=== PATIENT | female | born 1955 | race Caucasian/White ===

== ENCOUNTER → 2019-07-17 12:41 | Outpatient (CLI) | payer OTHER, SELFPAY ==
[2019-07-17 14:31] LABS: Cholesterol 201 mg/dL (140-199); Glucose 91 mg/dL (80-110); HDL Cholesterol 69 mg/dL (40-60); LDL Cholesterol Calculated 116 mg/dL (<100); Triglycerides 79 mg/dL (35-150)
== END ==
PROVIDERS: PCP Physician Assistant; Visit Provider Physician Assistant
DX: Z13.1 Encounter for screening for diabetes mellitus (principal); Z13.220 Encounter for screening for lipoid disorders; Z13.6 Encounter for screening for cardiovascular disorders
CPT/HCPCS: 36415; 80061; 82947

== ENCOUNTER → 2021-01-05 16:14 | Outpatient (CLI) | payer OTHER, SELFPAY ==
[2021-01-05 16:56] LABS: Add Manual Diff / Slide Review NO; Basophils Absolute Auto 100 /uL (0-100); Basophils Percent Auto 1.2 % (0-2); Eosinophils Absolute Auto 100 /uL (0-450); Eosinophils Percent Auto 0.9 % (2-4); Hematocrit 21.2 % (36-46); Lymphocytes Absolute Auto 1100 /uL (1100-4500); Lymphocytes Percent Auto 19.2 % (25-40); Mean Corpuscular HGB Conc 30.4 % (30-36); Mean Corpuscular Hemoglobin 19.6 PG (26-34); Mean Corpuscular Volume 64.6 fL (80-100); Monocytes Absolute Auto 500 /uL (0-900); Monocytes Percent Auto 8.5 % (3-14); Neutrophils Absolute Auto 4100 /uL (1500-7000); Neutrophils Percent Auto 70.2 % (50-75); Platelet Count 344 X10^3/uL (150-400); Red Blood Cell Count 3.29 X10^6/uL (4.0-5.2); Red Cell Distribution Width 17.6 % (11.6-14.8); White Blood Cell Count 5.8 X10^3/uL (4.5-11.0)
[2021-01-05 17:01] LABS: Hemoglobin 6.4 g/dL (12.0-16.0)
[2021-01-05 17:06] LABS: Alanine Aminotransferase 23 IU/L (<35); Albumin 4.1 g/dL (3.5-5.0); Albumin Globulin Ratio 1.4 (1.0-2.8); Alkaline Phosphatase 72 U/L (38-126); Aspartate Aminotransferase 26 IU/L (14-36); BUN Creatinine Ratio 22.5 (6-22); Bilirubin Total 0.3 mg/dL (0.2-1.3); Blood Urea Nitrogen 20 mg/dL (7-17); Calcium 8.9 mg/dL (8.4-10.2); Carbon Dioxide 30 mmol/L (22-32); Chloride 103 mmol/L (98-107); Estimated Glomerular Filt Rate > 60.0 mL/min (>60); Glucose 102 mg/dL (80-110); HEMOLYSIS < 15 (0-50); Potassium 4.3 mmol/L (3.4-5.1); Sodium 136 mmol/L (137-145); Total Protein 7.1 g/dL (6.3-8.2); Uric Acid 4.6 mg/dL (2.5-6.2)
[2021-01-05 17:13] LABS: Hypochromasia 2+; Microcytosis 3+; Polychromasia 2+; RBC Morphology ABNORMAL
== END ==
PROVIDERS: PCP Family Medicine; Referring Provider Registered Nurse; Visit Provider Registered Nurse
DX: M10.9 Gout, unspecified (principal); K21.9 Gastro-esophageal reflux disease without esophagitis; R42 Dizziness and giddiness
CPT/HCPCS: 36415; 80053; 84550; 85025

== ENCOUNTER 2021-01-05 17:40 | Inpatient (IN) | payer OTHER, SELFPAY ==
[2021-01-05] VITALS (15 sets, daily range): BP systolic 127–151; BP diastolic 63–88; PULSE 78–92; RESP 13–148; TEMP 36.2–36.9; O2SAT 95–100; BMI 26.6
[2021-01-05] MEDS: PANTOPRAZOLE 40 MG VIAL 80 MG IV (18:07)
[2021-01-05 18:11] LABS: Add Manual Diff / Slide Review NO; Basophils Absolute Auto 100 /uL (0-100); Basophils Percent Auto 1.1 % (0-2); Eosinophils Absolute Auto 100 /uL (0-450); Eosinophils Percent Auto 0.7 % (2-4); Hematocrit 21.6 % (36-46); Lymphocytes Absolute Auto 2000 /uL (1100-4500); Lymphocytes Percent Auto 25.2 % (25-40); Mean Corpuscular HGB Conc 30.2 % (30-36); Mean Corpuscular Hemoglobin 19.6 PG (26-34); Monocytes Absolute Auto 600 /uL (0-900); Monocytes Percent Auto 8.1 % (3-14); Neutrophils Absolute Auto 5100 /uL (1500-7000); Neutrophils Percent Auto 64.9 % (50-75); Platelet Count 355 X10^3/uL (150-400); Red Blood Cell Count 3.32 X10^6/uL (4.0-5.2); Red Cell Distribution Width 17.4 % (11.6-14.8); White Blood Cell Count 7.8 X10^3/uL (4.5-11.0)
[2021-01-05 18:13] LABS: Hemoglobin 6.5 g/dL (12.0-16.0)
[2021-01-05 18:17] LABS: Prothrombin Time 11.9 SECONDS (10.1-12.7)
[2021-01-05 18:20] LABS: PTT Partial Thromboplastin Tim 27 SECONDS (26.4-36.2)
[2021-01-05 18:22] LABS: Alanine Aminotransferase 25 IU/L (<35); Albumin 4.3 g/dL (3.5-5.0); Albumin Globulin Ratio 1.4 (1.0-2.8); Alkaline Phosphatase 77 U/L (38-126); Aspartate Aminotransferase 27 IU/L (14-36); BUN Creatinine Ratio 22.7 (6-22); Bilirubin Total 0.3 mg/dL (0.2-1.3); Blood Urea Nitrogen 20 mg/dL (7-17); Carbon Dioxide 27 mmol/L (22-32); Chloride 102 mmol/L (98-107); Estimated Glomerular Filt Rate > 60.0 mL/min (>60); Glucose 104 mg/dL (80-110); HEMOLYSIS < 15 (0-50); Sodium 135 mmol/L (137-145); Total Protein 7.3 g/dL (6.3-8.2)
--- NOTE | 2021-01-05 18:26 | PC.NURSE ---
reports one few days long episode of dark stools. since she reports she has had irregular stools, sometimes like little hard popcorns sometimes oily and greasy and sometimes liquid diarrhea.
[2021-01-05 18:37] LABS: COVID19 -Nasal RAPID Negative (Negative)
--- NOTE | 2021-01-05 18:50 | ED.RECABL ---
HPI - Recheck/Abnormal Lab/Rx General Chief Complaint: Recheck/Abnormal Lab/Rx Stated Complaint: Hemoglobin Critically Low, Sent From Time Seen by Provider: 01/05/21 18:01 Source: patient Mode of arrival: Ambulatory Limitations: no limitations History of Present Illness HPI narrative: Patient is a 65-year-old female who was sent to the emergency department after receiving a call from her primary doctor's office stating that her hemoglobin was ?critically low ?she states she went to her primary doctor's office this morning as a scheduled appointment for several days/weeks of feeling very fatigued. She also states that she does get somewhat short of breath with walking and feels that this has been going on along with the fatigue. She denies any other associated symptoms. This is why she came to see her primary doctor today. Labs were drawn she received a call telling her to come to the emergency department because of her low hemoglobin. She denies alcohol. She does have a history of which she states is gout and has been taking ?occasional ?anti-inflammatories for this. She states that several months ago she had which she thought was dark colored stools but that seems to have resolved. She has never had a colonoscopy in the past. She is not any fevers. No urinary symptoms. No abdominal pain. No nausea or vomiting. She is not on anticoagulation. She does have a history of reflux disease and takes medication for this. Related Data Home Medications Medication Instructions Recorded Confirmed naproxen sodium [Aleve] 220 mg PO HSP #0 03/22/11 01/05/21 CO-Q-10 See Rx Instructions .ROUTE .COMPLEX 08/08/18 01/05/21 Vitamin B Complex See Rx Instructions .ROUTE .COMPLEX 08/08/18 01/05/21 Vitamin C See Rx Instructions .ROUTE .COMPLEX 08/08/18 01/05/21 Vitamin D3 See Rx Instructions .ROUTE .COMPLEX 08/08/18 01/05/21 Previous Rx's Medication Instructions Recorded zolmitriptan 5 mg tablet 5 mg PO Q2-4H PRN #30 tab 09/23/20 famotidine 20 mg tablet 20 mg PO BID #180 tab 11/03/20 zolpidem 5 mg tablet 2.5 - 5 mg PO HS #30 tab 11/03/20 omeprazole 20 mg capsule,delayed 20 mg PO DAILY #30 cap 01/05/21 release Allergies Allergy/AdvReac Type Severity Reaction Status Date / Time pentazocine [PENTAZOCINE] AdvReac Intermediate RASH Verified 01/05/21 14:56 Review of Systems Constitutional Constitutional: Reports fatigue, Denies headache(s), Reports lethargy and Reports malaise Eyes Eyes: Denies change in vision ENT Ears, Nose, Mouth, and Throat: Denies headache(s), Denies sore throat and Denies throat swelling Cardiovascular Cardiovascular: Denies chest pain and Reports dyspnea on exertion Respiratory Respiratory: Denies cough and Reports dyspnea on exertion Gastrointestinal Gastrointestinal: Denies abdominal pain, Denies change in bowel habits, Denies nausea and Denies vomiting Genitourinary Genitourinary: Denies dysuria Genitourinary: Denies dysuria Musculoskeletal Musculoskeletal: Denies arthralgias and Denies myalgias Integumentary/Breasts Skin/Breast: Denies rash Neurologic Neurologic: Denies behavioral changes and Denies headache(s) Psychiatric Psychiatric: Denies behavioral changes Endocrine Endocrine: Reports fatigue and Denies flushing Hematologic/Lymphatic Hematologic/Lymphatic: Denies easy bleeding and Denies easy bruising On Anticoagulants: No Allergic/Immunologic Allergic/Immunologic: Denies urticaria and Denies throat swelling Patient History Medical History Postmenopausal HRT (hormone replacement therapy) Surgical History Status post delivery Family History Mother Blood disorder Suicide Father Heart attack Social History household members: spouse Smoking Status: Never smoker second hand exposure: No alcohol intake: former substance use type: does not use Smoking Status: Never smoker Exam Initial Vital Signs Initial Vital Signs: Vital Signs Temperature 97.2 F L 01/05/21 17:48 Pulse Rate 92 H 01/05/21 17:48 Respiratory Rate 20 01/05/21 17:48 Blood Pressure 151/72 H 01/05/21 17:48 Pulse Oximetry 96 01/05/21 17:48 Const General: cooperative, comfortable, well developed and well groomed Limitations: mental status not altered [facility] Head: normal to inspection and normocephalic Eyes General: appearance normal, both eyes and all related structures Chest Chest: No tenderness Resp Effort & Inspection: normal respiratory effort Auscultation: clear to auscultation bilaterally Cardio Rate: regular rate Rhythm: regular rhythm GI Inspection: non-distended Palpation: soft and No firm Rectal Exam: heme negative stool (However no stool was obtained on rectal exam) Skin Lesions: no lesions Rashes: no rashes Neuro General: patient alert, patient awake and patient oriented x3 Cognition: normal cognition Speech: speech normal Extrem General: normal to inspection and capillary refill normal Psych Appearance: grossly normal and well kempt Scores GCS Shyam coma scale eye opening: Spontaneous Shyam coma scale verbal response: Orientated Mcgrann coma scale motor response: Obey commands Mcgrann coma scale total score: 15 Course Orders Ordered: ED Orders 01/05/21 17:47 EKG-12 Lead Stat 01/05/21 17:57 Complete Blood Count AUTO DIFF Stat Comprehensive Metabolic Panel Stat Packed Cells Stat Partial Thromboplastin Time Stat Prothrombin Time INR Stat Type and Screen Stat 01/05/21 18:18 COVID19 Stat 01/05/21 19:44 Consult to General Surgery Stat Acetaminophen (Acetaminophen 325 Mg Tablet) 650 mg PO Q6HR PRN PRN Reason: Fever/Mild Pain (1-3) Pantoprazole Sodium 80 mg/ (Sodium Chloride) 100 mls @ 10 mls/hr IV CONT XIN Last Admin: 01/05/21 22:30 Dose: 8 mg/hr, 10 mls/hr Documented by: DEVAUGHN Naloxone HCl (Naloxone 0.4 Mg/Ml Vial) 0.2 mg IV Q2MIN PRN PRN Reason: Opiate Reversal Non-Formulary Medication (Zolmitriptan) 5 mg PO Q2HR PRN PRN Reason: Migraine Headache Ondansetron HCl (Ondansetron 4 Mg/2 Ml Inj) 4 mg IV Q8HR PRN PRN Reason: Nausea And Vomiting Discontinued Medications Pantoprazole Sodium (Pantoprazole 40 Mg Vial) 80 mg IV NOW ONE Stop: 01/05/21 17:47 Last Admin: 01/05/21 18:07 Dose: 80 mg Documented by: ULYSSES Pantoprazole Sodium (Pantoprazole 40 Mg Vial) 80 mg IV NOW ONE Stop: 01/05/21 19:45 Last Admin: 01/05/21 21:42 Dose: Not Given Documented by: MIKEAZQUE Vital Signs Vital signs: Vital Signs - 8 hr 01/05/21 17:48 01/05/21 18:20 01/05/21 18:30 Temperature 97.2 F L Pulse Rate 92 H 84 81 Respiratory Rate 20 22 13 Blood Pressure 151/72 H 127/74 Pulse Oximetry 96 100 100 01/05/21 19:00 01/05/21 19:30 01/05/21 19:31 Temperature 98.1 F Pulse Rate 83 81 78 Respiratory Rate 26 H 22 148 H Blood Pressure 133/75 148/75 H 148/75 H Pulse Oximetry 100 99 01/05/21 19:45 01/05/21 19:46 01/05/21 20:00 Temperature 98.5 F Pulse Rate 81 82 80 Respiratory Rate 20 20 20 Blood Pressure 145/68 H 145/68 H 142/69 H Pulse Oximetry 97 100 MDM - Recheck/Abnormal Lab/Rx Lab Data Attestation: I reviewed the patient's lab results. Result diagrams: 01/05/21 23:20 01/05/21 17:57 Labs: Lab Results 01/05/21 01/05/21 01/05/21 Range/Units 17:57 17:57 17:57 WBC 7.8 (4.5-11.0) X10^3/uL RBC 3.32 L (4.0-5.2) X10^6/uL Hgb 6.5 L* (12.0-16.0) g/dL Hct 21.6 L (36-46) % MCV 65.0 L (80-100) fL MCH 19.6 L (26-34) PG MCHC 30.2 (30-36) % RDW 17.4 H (11.6-14.8) % Plt Count 355 (150-400) X10^3/uL Neut % (Auto) 64.9 (50-75) % Lymph % (Auto) 25.2 (25-40) % [place] % (Auto) 8.1 (3-14) % Eos % (Auto) 0.7 L (2-4) % Baso % (Auto) 1.1 (0-2) % Neut # (Auto) 5100 (4762-6763) /uL Lymph # (Auto) 2000 (1618-8705) /uL [place] # (Auto) 600 (0-900) /uL Eos # (Auto) 100 (0-450) /uL Baso # (Auto) 100 (0-100) /uL PT 11.9 (10.1-12.7) SECONDS INR 1.0 (0.9-1.3) APTT 27 (26.4-36.2) SECONDS Sodium 135 L (137-145) mmol/L Potassium 4.0 (3.4-5.1) mmol/L Chloride 102 (98-107) mmol/L Carbon Dioxide 27 (22-32) mmol/L BUN 20 H (7-17) mg/dL Creatinine 0.88 (0.52-1.04) mg/dL Estimated GFR > 60.0 (>60) mL/min BUN/Creatinine Ratio 22.7 H (6-22) Glucose 104 (80-110) mg/dL Calcium 9.0 (8.4-10.2) mg/dL Total Bilirubin 0.3 (0.2-1.3) mg/dL AST 27 (14-36) IU/L ALT 25 (<35) IU/L Alkaline Phosphatase 77 (38-126) U/L Total Protein 7.3 (6.3-8.2) g/dL Albumin 4.3 (3.5-5.0) g/dL Globulin 3.0 (1.7-4.1) g/dL Albumin/Globulin Ratio 1.4 (1.0-2.8) SARS-CoV-2 (PCR) (Negative) Blood Type Antibody Screen Crossmatch 01/05/21 01/05/21 Range/Units 17:57 18:18 WBC (4.5-11.0) X10^3/uL RBC (4.0-5.2) X10^6/uL Hgb (12.0-16.0) g/dL Hct (36-46) % MCV (80-100) fL MCH (26-34) PG MCHC (30-36) % RDW (11.6-14.8) % Plt Count (150-400) X10^3/uL Neut % (Auto) (50-75) % Lymph % (Auto) (25-40) % [place] % (Auto) (3-14) % Eos % (Auto) (2-4) % Baso % (Auto) (0-2) % Neut # (Auto) (0201-2741) /uL Lymph # (Auto) (4185-0193) /uL [place] # (Auto) (0-900) /uL Eos # (Auto) (0-450) /uL Baso # (Auto) (0-100) /uL PT (10.1-12.7) SECONDS INR (0.9-1.3) APTT (26.4-36.2) SECONDS Sodium (137-145) mmol/L Potassium (3.4-5.1) mmol/L Chloride (98-107) mmol/L Carbon Dioxide (22-32) mmol/L BUN (7-17) mg/dL Creatinine (0.52-1.04) mg/dL Estimated GFR (>60) mL/min BUN/Creatinine Ratio (6-22) Glucose (80-110) mg/dL Calcium (8.4-10.2) mg/dL Total Bilirubin (0.2-1.3) mg/dL AST (14-36) IU/L ALT (<35) IU/L Alkaline Phosphatase (38-126) U/L Total Protein (6.3-8.2) g/dL Albumin (3.5-5.0) g/dL Globulin (1.7-4.1) g/dL Albumin/Globulin Ratio (1.0-2.8) SARS-CoV-2 (PCR) Negative (Negative) Blood Type B Positive Antibody Screen Negative Crossmatch See Detail ECG Data Attestation: I personally reviewed and interpreted this ECG as follows: Prior ECG tracings: not available for review Interpretation: Sinus rhythm Ventricular rate 86 Normal axis Normal QRS Normal QTC No ST T wave changes MDM Narrative Medical decision making narrative: Patient was anemic however was not hypotensive, not tachycardic. This makes me think that this is not an acute blood loss. Most likely source is GI given her history of reflux disease and also the black colored stool that she had several months ago. Given her fatigue over the past couple days in her low H&H I do feel that transfusing blood would help her symptoms. I did discuss this with her. We did discuss the risks and benefits of a blood transfusion and she expressed understanding and agreement with this. She did give her consent to a blood transfusion. We also discussed the potential etiology of her bleeding. Informed her that it is most likely a GI source. She was Hemoccult negative however I had very little if any blood available for testing on the rectal exam. I did discuss the case with Dr. Santiago with General surgery who recommended patient be admitted to the medicine service and she would come and see the patient tomorrow. I then discussed the case with SIMÓN Hickman the night Hospital provider will admit for further evaluation treatment. Discussed the admission with the patient. She expressed understanding and agreement. Discharge Plan Departure Patient Disposition: Admitted as Observation Clinical Impression: Anemia Admit Date/Time: 01/05/21 20:04 Admit Provider: Sheridan Hickman
--- NOTE | 2021-01-05 21:06 | PC.NURSE ---
At 2044 approx. 190 ml blood had infused,it was still infusing at 150 ml per hour.DR Motta said it was ok to hang the protonix gtt when blood infused.
[2021-01-05] MEDS: PANTOPRAZOLE 80 MG in SODIUM CHLORIDE 0.9% 100 ML 10 ML IV (22:30)
[2021-01-05 23:35] LABS: Hematocrit 24.4 % (36-46)
[2021-01-05 23:39] LABS: Hemoglobin 7.6 g/dL (12.0-16.0)
[2021-01-06] VITALS (15 sets, daily range): BP systolic 105–143; BP diastolic 62–96; PULSE 71–94; RESP 10–20; TEMP 36.3–37.2; O2SAT 95–100; BMI 26.6
--- NOTE | 2021-01-06 | PATH_ITS ---
[facility] Accession Number: [id number] . 01 Material submitted: . PART A: duodenum - DUODENUM PART B: gastrointestinal site - STOMACH PART C: esophagus - ESOPHAGUS . 02 Diagnosis: A. Duodenum: Duodenal mucosa with no diagnostic abnormality. Negative for active inflammation, features of sprue, dysplasia, or malignancy. . B. Stomach: Portions of gastric antral and body-type mucosa with mild chronic inflammation. A small focus of intestinal metaplasia is present. Negative for Helicobacter organisms by immunohistochemistry. Negative for dysplasia and malignancy. . C. Esophagus: Squamous mucosa with no diagnostic abnormality. Intraepithelial eosinophils are not increased. Negative for dysplasia and malignancy. [facility] 01/08/2021 0933 Local . 02 Electronically signed: . Sushma Singh MD, Pathologist NPI- [id number] . 01 Gross description: . Part A: DUODENUM: Received in formalin is 1 fragment(s) of partida, soft tissue measuring 0.4 x 0.3 x 0.1 cm submitted entirely in 1 cassette(s) Part B: STOMACH: Received in formalin are 2 fragment(s) of partida, soft tissue measuring 0.5 x 0.3 x 0.1 cm to 0.3 x 0.3 x 0.2 cm submitted entirely in 1 cassette(s) Part C: ESOPHAGUS: Received in formalin are 2 fragment(s) of partida, soft tissue measuring 0.3 x 0.2 x 0.1 cm to 0.2 x 0.2 x 0.1 cm submitted entirely in 1 cassette(s) /QBJ 01/07/2021 0733 Local . 02 Microscopic: . B. An immunohistochemical stain was performed to evaluate for Helicobacter organisms and is negative. The control stain showed appropriate reactivity. . * This test was developed and its performance characteristics determined by [facility]. It has not been cleared or approved by the U.S. Food and Drug Administration. The FDA has determined that such clearance or approval is not necessary. This test is used for clinical purposes. It should not be regarded as investigational or for research. . 02 Pathologist provided ICD-10: Z12.11 . 02 CPT . 415273, 268605, 511212, B18896 Performed at: 01 [facility] [address] [place] [address] [id number] MD Lazaro Lawson MD Phone: [phone] Performed at: [address] [id number] MD Natasha Henson MD Phone: [phone]
[2021-01-06] MEDS: ZOLPIDEM 5 MG TABLET PO (01:38)
--- NOTE | 2021-01-06 03:09 | P.HP_ITS ---
History of Present Illness History of Present Illness Date Patient Seen: 01/05/21 Time Patient Seen: 22:15 Chief complaint: Hemoglobin Critically Low, Sent From Dr Rowland: Tadeo Siegel is a pleasant 65-year-old female with a history of gout, GERD and migraine headaches presented to her PCP with a 7-10 day history of fatigue and just feeling winded in general. She stated she thought it was basically due to being inactive over her days of self isolation. She denies any chest pain. She denies nausea vomiting, abdominal pain, diarrhea, or constipation. She does state that approximately 6 weeks ago she had a 2 or 3 day period of having black tarry stool. In the ED her guaiac was negative. She does take Tylenol and ibuprofen for gout flare up and had been taking this course for the last 3 days. She does not have a history of ever having had a screening colonoscopy. CBC ordered by her PCP indicated a hemoglobin and hematocrit of 6.4/21.2. In the ED her hemoglobin and hematocrit were essentially the same. They gave her 1 unit PRBC. And currently her H&H is 7.6 and 24.4. She is afebrile, blood pressure 143/81, heart rate 94, respiratory rate of 20, oxygen saturation 95% on room air, she weighs 74.8 kg with a BMI of 26.6. Currently her WBC is 7.8 RBC 3.32, hemoglobin 7.6, hematocrit 24.4, platelet count 355, INR is 1.0, sodium is 135, potassium 4.0, chloride 102, CO2 27, BUN 20, creatinine 0.88, GFR is greater than 60, glucose 104, calcium 9.0, liver enzymes essentially within normal limits, and COVID 19 PCR is negative. Patient History Medical History (Updated 01/06/21 @ 03:17 by MARYBETH Veliz) Anemia Gastroesophageal reflux disease (03/22/11) Gout Migraine without aura (03/22/11) Postmenopausal HRT (hormone replacement therapy) Surgical History Status post delivery Family & Social History Family History Mother Blood disorder Suicide Father Heart attack Social History: household members spouse Prior Living Arrangements House Safety & Behavioral: Feels Safe in Current Yes Environment Been Physically Hurt or No Threatened By a Person Suicidal Ideation Description None Suicide Plan Description No Plan Tobacco & Substance use: Smoking Status Never smoker alcohol intake former Substance Use Type does not use Meds Home Medications and Allergies Home Medications Medication Instructions Recorded Confirmed Type naproxen sodium [Aleve] 220 mg PO HSP #0 03/22/11 01/05/21 History CO-Q-10 See Rx Instructions .ROUTE .COMPLEX 08/08/18 01/05/21 History Vitamin B Complex See Rx Instructions .ROUTE .COMPLEX 08/08/18 01/05/21 History Vitamin C See Rx Instructions .ROUTE .COMPLEX 08/08/18 01/05/21 History Vitamin D3 See Rx Instructions .ROUTE .COMPLEX 08/08/18 01/05/21 History zolmitriptan 5 mg tablet 5 mg PO Q2-4H PRN #30 tab 09/23/20 01/05/21 Rx famotidine 20 mg tablet 20 mg PO BID #180 tab 11/03/20 01/05/21 Rx zolpidem 5 mg tablet 2.5 - 5 mg PO HS #30 tab 11/03/20 01/05/21 Rx omeprazole 20 mg capsule,delayed 20 mg PO DAILY #30 cap 01/05/21 01/05/21 Rx release Allergies Allergy/AdvReac Type Severity Reaction Status Date / Time pentazocine [PENTAZOCINE] AdvReac Intermediate RASH Verified 01/05/21 14:56 Review of Systems Review of Systems ROS: Yes All systems reviewed with the patient and are negative except as otherwise documented Exam Vital Signs (past 8 hours): - 01/05/21 19:30 01/05/21 19:31 01/05/21 19:45 Temperature 98.1 F Pulse Rate 81 78 81 Respiratory Rate 22 148 H 20 Blood Pressure 148/75 H 148/75 H 145/68 H Pulse Oximetry 99 97 01/05/21 19:46 01/05/21 20:00 01/05/21 20:15 Temperature 98.5 F Pulse Rate 82 80 84 Respiratory Rate 20 20 17 Blood Pressure 145/68 H 142/69 H 137/63 Pulse Oximetry 100 98 01/05/21 20:30 01/05/21 20:45 01/05/21 20:55 Temperature 98 F 98.2 F Pulse Rate 82 84 84 Respiratory Rate 18 18 17 Blood Pressure 144/76 H 151/78 H 141/73 H Pulse Oximetry 99 100 100 01/05/21 22:25 01/06/21 00:57 Temperature 98.3 F 97.4 F L Pulse Rate 78 94 H Respiratory Rate 18 20 Blood Pressure 135/88 143/81 H Pulse Oximetry 95 Oxygen Delivery Method Room Air Narrative Exam Narrative: Gen: Alert, oriented, well-developed 65 y.o. female, non-toxic appearing HEENT: normocephalic, atraumatic, conjunctiva clear, sclera non-icteric, oral mucosa pink and moist Neck: supple, full ROM, no JVD, trachea is midline Resp: Lungs CTA, non-labored breathing CV: RRR, no murmur or rubs Abd: soft, non-tender, normoactive BTs Skin: no lesions or rashes, dry and intact Neuro: Alert and oriented X 4 w/no focal deficits. Speech clear and coherent. Extremities: moves all 4 extremities, is ambulatory, negative Jairo?s sign Psyche: normal mood and affect. Objective Labs Result Diagrams: 01/05/21 23:20 01/05/21 17:57 Labs: Laboratory Results - last 24 hr 01/05/21 01/05/21 01/05/21 17:57 17:57 17:57 WBC 7.8 RBC 3.32 L Hgb 6.5 L* Hct 21.6 L MCV 65.0 L MCH 19.6 L MCHC 30.2 RDW 17.4 H Plt Count 355 Neut % (Auto) 64.9 Lymph % (Auto) 25.2 [place] % (Auto) 8.1 Eos % (Auto) 0.7 L Baso % (Auto) 1.1 Neut # (Auto) 5100 Lymph # (Auto) 2000 [place] # (Auto) 600 Eos # (Auto) 100 Baso # (Auto) 100 PT 11.9 INR 1.0 APTT 27 Sodium 135 L Potassium 4.0 Chloride 102 Carbon Dioxide 27 BUN 20 H Creatinine 0.88 Estimated GFR > 60.0 BUN/Creatinine Ratio 22.7 H Glucose 104 Calcium 9.0 Total Bilirubin 0.3 AST 27 ALT 25 Alkaline Phosphatase 77 Total Protein 7.3 Albumin 4.3 Globulin 3.0 Albumin/Globulin Ratio 1.4 SARS-CoV-2 (PCR) Blood Type Antibody Screen Crossmatch 01/05/21 01/05/21 01/05/21 17:57 18:18 23:20 WBC RBC Hgb 7.6 L Hct 24.4 L MCV MCH MCHC RDW Plt Count Neut % (Auto) Lymph % (Auto) [place] % (Auto) Eos % (Auto) Baso % (Auto) Neut # (Auto) Lymph # (Auto) [place] # (Auto) Eos # (Auto) Baso # (Auto) PT INR APTT Sodium Potassium Chloride Carbon Dioxide BUN Creatinine Estimated GFR BUN/Creatinine Ratio Glucose Calcium Total Bilirubin AST ALT Alkaline Phosphatase Total Protein Albumin Globulin Albumin/Globulin Ratio SARS-CoV-2 (PCR) Negative Blood Type B Positive Antibody Screen Negative Crossmatch See Detail Assessment & Plan Assessment & Plan narrative: Tadeo Cyr is a 65 y.o. female who will be observed overnight to complete her blood transfusion and to undergo upper endoscopy to attempt to locate the source of bleeding. Suspected upper GI bleed - She received one unit PRBC and check H and H at 0500 - Dr. Santiago consulting and will scope on the 17th - NPO past midnight Gout - Holding NSAIDS Chronic migraines - She takes Zomid almost daily and may take her own VTE prophylaxis: Wells risk score: 0 Bilateral SCDs Consults: Dr. Santiago, consult and involvement is appreciated. Patient is observation status as her stay is not likely to exceed 2 midnights. FEN: saline lock, NPO past midnight, BMP and magnesium in the am. Dispo: probable discharge to home Code Status: Full code as discussed with patient COVID-19 COVID-19 status: Negative Result date/Date tested (Pos, Neg/Pending): 01/05/21
[2021-01-06 05:30] LABS: Basophils Absolute Auto 100 /uL (0-100); Basophils Percent Auto 1.1 % (0-2); Eosinophils Absolute Auto 100 /uL (0-450); Hematocrit 23.7 % (36-46); Hemoglobin 7.4 g/dL (12.0-16.0); Lymphocytes Absolute Auto 2300 /uL (1100-4500); Lymphocytes Percent Auto 37.3 % (25-40); Mean Corpuscular HGB Conc 31.1 % (30-36); Mean Corpuscular Hemoglobin 20.9 PG (26-34); Mean Corpuscular Volume 67.2 fL (80-100); Monocytes Absolute Auto 500 /uL (0-900); Monocytes Percent Auto 8.5 % (3-14); Neutrophils Absolute Auto 3200 /uL (1500-7000); Neutrophils Percent Auto 51.1 % (50-75); Platelet Count 289 X10^3/uL (150-400); Red Blood Cell Count 3.53 X10^6/uL (4.0-5.2); Red Cell Distribution Width 19.9 % (11.6-14.8); White Blood Cell Count 6.3 X10^3/uL (4.5-11.0)
[2021-01-06 05:37] LABS: BUN Creatinine Ratio 18.1 (6-22); Blood Urea Nitrogen 15 mg/dL (7-17); Calcium 8.8 mg/dL (8.4-10.2); Carbon Dioxide 29 mmol/L (22-32); Chloride 105 mmol/L (98-107); Estimated Glomerular Filt Rate > 60.0 mL/min (>60); Glucose 83 mg/dL (80-110); HEMOLYSIS < 15 (0-50); Magnesium 2.1 mg/dL (1.6-2.3); Potassium 3.9 mmol/L (3.4-5.1); Sodium 136 mmol/L (137-145)
[2021-01-06 05:42] LABS: Add Manual Diff / Slide Review SLIDE REVIEW
--- NOTE | 2021-01-06 08:45 | PM.CN ---
History of Present Illness Consult details Date Patient Seen: 01/06/21 Time Patient Seen: 08:45 Chief complaint: Hemoglobin Critically Low, Sent From Reason for consult: Anemia, suspected GI bleed Requesting provider: Kervin Khan Narrative: This is a 65-year-old woman who came into the ER last night with about a week of feeling generally weak and tired. She was found to have a hemoglobin of 6.5. She was given a unit of blood, her hemoglobin is 7.4 this morning. She reports having melena several weeks ago, and again last week. She occasionally takes NSAIDs for gout pain. She has history of GERD, and take some OT in 20 mg b.i.d.. She says she has never taken omeprazole or another PPI. She has never had an EGD or colonoscopy. She denies any known family history of colon polyps or colon cancers. Guaiac was reported as negative by the ER doctor, but he says he did not feel he got an adequate sample. ROS:Constitutional Constitutional: Reports fatigue, reports daily headaches, Reports lethargy and Reports malaise, reports feeling ?fat and bloated Eyes: Denies change in vision Ears, Nose, Mouth, and Throat: Denies headache(s), Denies sore throat and Denies throat swelling Cardiovascular: Denies chest pain and Reports dyspnea on exertion Respiratory: Denies cough and Reports dyspnea on exertion Gastrointestinal: Denies abdominal pain, reports indigestion, Denies nausea and Denies vomiting, reports melena 1 week ago and several weeks ago, denies hematochezia Genitourinary: Denies dysuria Musculoskeletal: Denies arthralgias and Denies myalgias Skin/Breast: Denies rash Neurologic: Denies behavioral changes, reports daily headaches Psychiatric: Denies behavioral changes Endocrine: Reports fatigue and Denies flushing Hematologic/Lymphatic: Denies easy bleeding and Denies easy bruising Allergic/Immunologic: Denies urticaria and Denies throat swelling PE: GENERAL: Alert, comfortable. Appears stated age. Answers questions promptly and appropriately. Vital signs noted. HENT: Normocephalic, atraumatic. Hearing intact. EYES: Conjunctiva pink, sclera white, no periorbital swelling. CARDIOVASCULAR: Regular rate. No pedal edema. RESPIRATORY: Non-tachypneic, breathing comfortably on room air. GASTROINTESTINAL: Abdomen soft and non-distended, nontender, rounded GENITALURINARY: No flank tenderness. MUSCULOSKELETAL: Equal tone and mass bilaterally. SKIN: Warm, dry, soft, appropriate color for ethnicity. No other lesions, rashes, or wounds. NEURO: Alert and Oriented X 3. No gross sensory deficits, or cognitive issues. PSYCH: Appropriate affect and mood. Meds Home Medications and Allergies Home Medications Medication Instructions Recorded Confirmed Type naproxen sodium [Aleve] 220 mg PO HSP #0 03/22/11 01/05/21 History CO-Q-10 See Rx Instructions .ROUTE .COMPLEX 08/08/18 01/05/21 History Vitamin B Complex See Rx Instructions .ROUTE .COMPLEX 08/08/18 01/05/21 History Vitamin C See Rx Instructions .ROUTE .COMPLEX 08/08/18 01/05/21 History Vitamin D3 See Rx Instructions .ROUTE .COMPLEX 08/08/18 01/05/21 History zolmitriptan 5 mg tablet 5 mg PO Q2-4H PRN #30 tab 09/23/20 01/05/21 Rx famotidine 20 mg tablet 20 mg PO BID #180 tab 11/03/20 01/05/21 Rx zolpidem 5 mg tablet 2.5 - 5 mg PO HS #30 tab 11/03/20 01/05/21 Rx omeprazole 20 mg capsule,delayed 20 mg PO DAILY #30 cap 01/05/21 01/05/21 Rx release Allergies Allergy/AdvReac Type Severity Reaction Status Date / Time pentazocine [PENTAZOCINE] AdvReac Intermediate RASH Verified 01/05/21 14:56 Exam Vital Signs (past 8 hours): - 01/06/21 00:57 01/06/21 05:00 01/06/21 08:00 Temperature 97.4 F L 97.5 F L 98.5 F Pulse Rate 94 H 83 81 Respiratory Rate 20 18 18 Blood Pressure 143/81 H 129/72 113/62 Pulse Oximetry 95 97 97 Oxygen Delivery Method Room Air Oxygen Flow Rate 0 Objective Labs Result Diagrams: 01/06/21 05:00 01/06/21 05:00 Labs: Laboratory Results - last 24 hr 01/05/21 01/05/21 01/05/21 17:57 17:57 17:57 WBC 7.8 RBC 3.32 L Hgb 6.5 L* Hct 21.6 L MCV 65.0 L MCH 19.6 L MCHC 30.2 RDW 17.4 H Plt Count 355 Neut % (Auto) 64.9 Lymph % (Auto) 25.2 [place] % (Auto) 8.1 Eos % (Auto) 0.7 L Baso % (Auto) 1.1 Neut # (Auto) 5100 Lymph # (Auto) 2000 [place] # (Auto) 600 Eos # (Auto) 100 Baso # (Auto) 100 RBC Morphology Dimorphic RBCs PT 11.9 INR 1.0 APTT 27 Sodium 135 L Potassium 4.0 Chloride 102 Carbon Dioxide 27 BUN 20 H Creatinine 0.88 Estimated GFR > 60.0 BUN/Creatinine Ratio 22.7 H Glucose 104 Calcium 9.0 Magnesium Total Bilirubin 0.3 AST 27 ALT 25 Alkaline Phosphatase 77 Total Protein 7.3 Albumin 4.3 Globulin 3.0 Albumin/Globulin Ratio 1.4 SARS-CoV-2 (PCR) Blood Type Antibody Screen Crossmatch 01/05/21 01/05/21 01/05/21 17:57 18:18 23:20 WBC RBC Hgb 7.6 L Hct 24.4 L MCV MCH MCHC RDW Plt Count Neut % (Auto) Lymph % (Auto) [place] % (Auto) Eos % (Auto) Baso % (Auto) Neut # (Auto) Lymph # (Auto) [place] # (Auto) Eos # (Auto) Baso # (Auto) RBC Morphology Dimorphic RBCs PT INR APTT Sodium Potassium Chloride Carbon Dioxide BUN Creatinine Estimated GFR BUN/Creatinine Ratio Glucose Calcium Magnesium Total Bilirubin AST ALT Alkaline Phosphatase Total Protein Albumin Globulin Albumin/Globulin Ratio SARS-CoV-2 (PCR) Negative Blood Type B Positive Antibody Screen Negative Crossmatch See Detail 01/06/21 01/06/21 05:00 05:00 WBC 6.3 RBC 3.53 L Hgb 7.4 L Hct 23.7 L MCV 67.2 L MCH 20.9 L MCHC 31.1 RDW 19.9 H Plt Count 289 Neut % (Auto) 51.1 Lymph % (Auto) 37.3 [place] % (Auto) 8.5 Eos % (Auto) 2.0 Baso % (Auto) 1.1 Neut # (Auto) 3200 Lymph # (Auto) 2300 [place] # (Auto) 500 Eos # (Auto) 100 Baso # (Auto) 100 RBC Morphology See below Dimorphic RBCs * PT INR APTT Sodium 136 L Potassium 3.9 Chloride 105 Carbon Dioxide 29 BUN 15 Creatinine 0.83 Estimated GFR > 60.0 BUN/Creatinine Ratio 18.1 Glucose 83 Calcium 8.8 Magnesium 2.1 Total Bilirubin AST ALT Alkaline Phosphatase Total Protein Albumin Globulin Albumin/Globulin Ratio SARS-CoV-2 (PCR) Blood Type Antibody Screen Crossmatch Assessment & Plan Assessment and plan (1) Gastroesophageal reflux disease: Qualifiers: Esophagitis presence: esophagitis presence not specified Qualified Code(s): K21.9 - Gastro-esophageal reflux disease without esophagitis Status: Chronic (2) Anemia: Status: Acute Assessment & Plan narrative: I had a long discussion with the patient regarding her history and symptoms, and her lab findings. Although she had a negative guaiac in the ER, the history is suspicious and because she came in with such a low hemoglobin, we will do an upper endoscopy today to rule out an upper GI source. I told her that she would need to have a colonoscopy, since she is 65 years old, has never had a colonoscopy, and has unexplained anemia. I explained that the colonoscopy could likely be done as an outpatient, unless we find no evidence of a source in the upper GI tract. Risks and benefits of EGD and possible biopsy, with possible procedures for hemostasis were discussed with the patient including risk of bleeding, perforation, need for additional procedures, risks of anesthesia. The patient desires to proceed with the upper endoscopy procedure. This will be performed with any anesthesiologist providing the sedation given that she is in the hospital for an acute bleed, and the procedure is likely to be more complex, and require a longer anesthetic. This increases the risk for respiratory or cardiac events, and therefore her sedation should be monitored and managed by anesthesiologist. Plan: NPO PPI EGD this afternoon COVID-19 COVID-19 status: Negative Result date/Date tested (Pos, Neg/Pending): 01/05/21 Time Spent With Patient Time with patient: 25 - 35 minutes
[2021-01-06] MEDS: PANTOPRAZOLE 40 MG VIAL IV (10:30)
[2021-01-06] MEDS: LACTATED RINGERS 1,000 ML 42 ML IV (11:43)
--- NOTE | 2021-01-06 12:00 | CM.DANOTE ---
DCP/Asssessment: Reviewed chart. Patient is a 65yr old female admitted to [facility] with critically low hemoglobin. PCP is Arsh Us. Primary payor is 1)[facility]. NUCLEAR PLANT EQUIPMENT OPERATOR met with patient this AM explained CM/SW role. Patient alert and oriented, resting in bed at time of visit. Patient reports that she resides with spouse/T[place] Patient denies any d/c planning needs at this time. Patient reports that she is completely I in all ADL's. Patient scheduled to have EGD today. P: Anticipate home when medically stable. SOHAIL Morales Discharge Planning/Care Management CM Discharge Assessment Start: 01/06/21 11:57 Freq: Status: Active Protocol: Document 01/06/21 11:58 KJS (Rec: 01/06/21 12:00 KJS [id number]) Discharge Planning Assessment Assigned Certified Medical Aide SOHAIL Morales Contact Information Taran Cyr(spouse) Advance Directives? No History Provided By Patient,Medical Record Prior Living Arrangements House Household Members spouse Type of transporation used prior to Drives own vehicle admit Independent with ADL's Yes Is patient alert and oriented? Yes Caregiver for Another No Barriers to Discharge No Discharge Plan Home Transportation Arrangement Family to provide transport. Whiteboard Updated in Patient Room with Yes name and ext. # of Certified Medical Aide Review Status In Process Next Review Type Continued Stay Review
--- NOTE | 2021-01-06 12:09 | PC.NURSE ---
Addendum entered by Isabel Camargo R.N. 01/06/21 15:44: Patient back from EGD around 1410. Patient Alert and Orientedx3. PACU Nurse states that patient had a propofol drip down in EGD. Denies pain. She did have a bowel movement that did guiac + for blood and MD aware of this. CONTROLLER REPAIRER AND TESTER also states that patient has a hyatal hernia and they were not able to find any bleeding. Original Note: Patient has no signs or symptoms of bleeding, no bowel movement this shift. She is up independently and denies pain. Down to EGD at 1130
--- NOTE | 2021-01-06 13:29 | P.OP.ENDO_ITS ---
Operative Date/Time/Diagnoses Date of procedure: 01/06/21 Time of procedure: 13:29 Pre-op diagnosis: GI bleed, suspect upper GI source Post-op diagnosis: other (Mild erythema of the duodenum bulb and gastric antrum) Procedure & Clinicians Study performed: [id number] Biopsy of duodenum, stomach, and distal esophagus Same procedure as scheduled: Yes Indications: Anemia, suspect upper GI source Surgeon: Susie Santiago Procedure Notes SCOAP/Timeout: Performed Procedure in detail: The patient was brought to the room and placed in left lateral decubitus position with all bony prominences padded. A bite block was positioned in the patient's mouth to protect the lips, teeth, and tongue for the procedure. A time-out was performed and then the patient was then placed under anesthesia by the anesthesiologist. Vitals were monitored throughout the procedure and remained stable. Once adequately sedated, the procedure was begun. The lubricated gastroscope was passed through the bite block and across the tongue and into the esophagus without incident. A tubular view of the esophagus was maintained as the scope was advanced through the esophagus and into the stomach. The scope was advanced through the stomach and to the pylorus. The scope was gently popped through the pylorus and into the duodenal bulb. The scope was flexed and advanced into the second and third portions of the duodenum. The duodenum and duodenal bulb revealed slight erythema. Biopsies were taken. The scope was withdrawn into the stomach. The stomach revealed mild to moderate endoscopic gastritis, with stigmata of recent bleeding, but no exposed vessels, ulcers, or active bleeding. Biopsies were taken. The scope was retroflexed and the gastric cardia was examined. The hiatus was closed well around the scope. There was a sort of waist band around the stomach around the mid body of the stomach, which could represent an enlarged hiatus, gastric peristalsis, or an anatomical variant. There were no associated ulcerations or bleeding sources. The scope was then straightened, and withdrawn into the esophagus. The Z-line was unbroken. The distal esophagus appeared fairly normal. The scope was then withdrawn through the esophagus with a tubular view. The scope was then withdrawn from the patient the procedure was concluded. The patient tolerated the procedure well and was transferred to the PACU in stable condition. Findings: gastritis Specimen(s): other (Biopsies of duodenum, stomach, distal esophagus) Impression: Erythema in stomach and duodenum may represent a source of recent bleeding, which is now stopped. We will follow up the biopsies for H pylori. In the meantime, she should be on a PPI rather than just famotidine, and she should have an outpatient colonoscopy. The odd shape of the stomach seen on today's exam does not seem to be contributing at all as a source of bleeding, and can be elucidated with an esophagram as an outpatient. Post-procedure Recommendations: Other recommendation (Follow-up biopsy results, get a colo noscopy as an outpatient as soon as possible) Plan for aftercare: Return to acute care floor, double dose PPI, schedule for outpatient colonoscopy Follow up: as needed Disposition: PACU
--- NOTE | 2021-01-06 13:59 | SUR.PHASEI ---
Stable post EGD, belly soft denied pain. Report called to JOHN Hall and Dr. Santiago spoke with pt at bedside.
--- NOTE | 2021-01-06 14:04 | SUR.PHASEI ---
Pt transported back up to room 218.
--- NOTE | 2021-01-06 14:21 | SUR.PHASEI ---
Pt left with Isabel in room 218 in stable condition.
--- NOTE | 2021-01-06 16:51 | P.DS_ITS ---
History of Present Illness History of Present Illness Date Patient Seen: 01/06/21 Time Patient Seen: 16:52 Chief complaint: Hemoglobin Critically Low, Sent From Dr Rowland: As per MARYBETH Veliz: Tadeo Siegel is a pleasant 65-year-old female with a history of gout, GERD and migraine headaches presented to her PCP with a 7-10 day history of fatigue and just feeling winded in general. She stated she thought it was basically due to being inactive over her days of self isolation. She denies any chest pain. She denies nausea vomiting, abdominal pain, diarrhea, or constipation. She does state that approximately 6 weeks ago she had a 2 or 3 day period of having black tarry stool. In the ED her guaiac was negative. She does take Tylenol and ibuprofen for gout flare up and had been taking this course for the last 3 days. She does not have a history of ever having had a screening colonoscopy. CBC ordered by her PCP indicated a hemoglobin and hematocrit of 6.4/21.2. In the ED her hemoglobin and hematocrit were essentially the same. They gave her 1 unit PRBC. And currently her H&H is 7.6 and 24.4. She is afebrile, blood pressure 143/81, heart rate 94, respiratory rate of 20, oxygen saturation 95% on room air, she weighs 74.8 kg with a BMI of 26.6. Currently her WBC is 7.8 RBC 3.32, hemoglobin 7.6, hematocrit 24.4, platelet count 355, INR is 1.0, sodium is 135, potassium 4.0, chloride 102, CO2 27, BUN 20, creatinine 0.88, GFR is greater than 60, glucose 104, calcium 9.0, liver enzymes essentially within nor mal limits, and COVID 19 PCR is negative. Discharge Providers Provider Date of admission: 01/05/21 20:04 Discharge Date: 01/06/21 Primary care physician: Arsh Giles DO Consults: 01/05/21 19:44 Consult to General Surgery Stat Comment: Consulting Provider: Susie Santiago Reason for consultation: GI bleed Has provider been notified: Yes 01/05/21 23:04 Consult to General Surgery Routine Comment: Consulting Provider: Susie Santiago Reason for consultation: suspected upper GI bleed Has provider been notified: Yes Discharge provider: Kervin Khan DO Summary Hospital Course Discharge Diagnosis: 1. Acute blood loss anemia secondary to likely upper GI bleed 2. Gout, chronic 3. Chronic migraines, not present on admission Hospital Course: This is a 65-year-old female with a past medical history of gout and chronic migraines who was admitted with an acute blood loss anemia presume secondary to an upper GI bleed. Her hemoglobin on admission was 6.4, she was transfused 1 unit PRBC with appropriate response to 7.6. Her symptoms were improved after transfusion and repeat hemoglobin was 7.4. She underwent endoscopy with Dr. Santiago of general surgery, who noted mild gastritis and an abnormally shaped stomach. She recommended continued PPI therapy as an outpatient as well as outpatient colonoscopy when able. For her abnormally shaped stomach she recommended a possible esophagram as an outpatient as well. Patient was additionally started on oral iron given her microcytic anemia presumed secondary to iron deficiency anemia for her GI bleeding. The patient did have another stool which was noted to be guaiac positive confirming likely GI bleeding. Exam Vital Signs (past 8 hours): - 01/06/21 11:45 01/06/21 12:00 01/06/21 13:31 Temperature 97.3 F L 98.4 F Pulse Rate 90 81 82 Respiratory Rate 16 18 16 Blood Pressure 123/78 121/68 105/67 Pulse Oximetry 98 99 98 01/06/21 13:36 01/06/21 13:41 01/06/21 13:51 Temperature Pulse Rate 85 78 72 Respiratory Rate 14 17 13 Blood Pressure 117/69 116/75 118/70 Pulse Oximetry 99 100 99 01/06/21 13:58 01/06/21 14:10 01/06/21 14:40 Temperature 97.9 F 98.9 F 98.2 F Pulse Rate 71 79 73 Respiratory Rate 16 10 L 16 Blood Pressure 119/72 115/96 H 121/71 Pulse Oximetry 98 98 100 01/06/21 15:10 01/06/21 16:10 Temperature 98.3 F 98.2 F Pulse Rate 81 78 Respiratory Rate 17 16 Blood Pressure 135/75 120/72 Pulse Oximetry 100 100 Oxygen Delivery Method Room Air Oxygen Flow Rate 0 Narrative Exam Narrative: Gen: Alert, oriented, well-developed 65 y.o. female, in no acute distress HEENT: normocephalic, atraumatic, conjunctiva clear, sclera non-icteric, oral mucosa pink and moist Neck: supple, full ROM, no JVD, trachea is midline Resp: Lungs CTA, non-labored breathing CV: RRR, no murmur or rubs Abd: soft, non-tender, normoactive BTs Skin: no lesions or rashes, dry and intact Neuro: Alert and oriented X 4 w/no focal deficits. Speech clear and coherent. Extremities: moves all 4 extremities, gait is normal Psyche: normal mood and affect. Objective Labs Result Diagrams: 01/06/21 05:00 01/06/21 05:00 Labs: Laboratory Results - last 24 hr 01/05/21 01/05/21 01/05/21 17:57 17:57 17:57 WBC 7.8 RBC 3.32 L Hgb 6.5 L* Hct 21.6 L MCV 65.0 L MCH 19.6 L MCHC 30.2 RDW 17.4 H Plt Count 355 Neut % (Auto) 64.9 Lymph % (Auto) 25.2 [place] % (Auto) 8.1 Eos % (Auto) 0.7 L Baso % (Auto) 1.1 Neut # (Auto) 5100 Lymph # (Auto) 2000 [place] # (Auto) 600 Eos # (Auto) 100 Baso # (Auto) 100 RBC Morphology Dimorphic RBCs PT 11.9 INR 1.0 APTT 27 Sodium 135 L Potassium 4.0 Chloride 102 Carbon Dioxide 27 BUN 20 H Creatinine 0.88 Estimated GFR > 60.0 BUN/Creatinine Ratio 22.7 H Glucose 104 Calcium 9.0 Magnesium Total Bilirubin 0.3 AST 27 ALT 25 Alkaline Phosphatase 77 Total Protein 7.3 Albumin 4.3 Globulin 3.0 Albumin/Globulin Ratio 1.4 SARS-CoV-2 (PCR) Blood Type Antibody Screen Crossmatch 01/05/21 01/05/21 01/05/21 17:57 18:18 23:20 WBC RBC Hgb 7.6 L Hct 24.4 L MCV MCH MCHC RDW Plt Count Neut % (Auto) Lymph % (Auto) [place] % (Auto) Eos % (Auto) Baso % (Auto) Neut # (Auto) Lymph # (Auto) [place] # (Auto) Eos # (Auto) Baso # (Auto) RBC Morphology Dimorphic RBCs PT INR APTT Sodium Potassium Chloride Carbon Dioxide BUN Creatinine Estimated GFR BUN/Creatinine Ratio Glucose Calcium Magnesium Total Bilirubin AST ALT Alkaline Phosphatase Total Protein Albumin Globulin Albumin/Globulin Ratio SARS-CoV-2 (PCR) Negative Blood Type B Positive Antibody Screen Negative Crossmatch See Detail 01/06/21 01/06/21 05:00 05:00 WBC 6.3 RBC 3.53 L Hgb 7.4 L Hct 23.7 L MCV 67.2 L MCH 20.9 L MCHC 31.1 RDW 19.9 H Plt Count 289 Neut % (Auto) 51.1 Lymph % (Auto) 37.3 [place] % (Auto) 8.5 Eos % (Auto) 2.0 Baso % (Auto) 1.1 Neut # (Auto) 3200 Lymph # (Auto) 2300 [place] # (Auto) 500 Eos # (Auto) 100 Baso # (Auto) 100 RBC Morphology See below Dimorphic RBCs * PT INR APTT Sodium 136 L Potassium 3.9 Chloride 105 Carbon Dioxide 29 BUN 15 Creatinine 0.83 Estimated GFR > 60.0 BUN/Creatinine Ratio 18.1 Glucose 83 Calcium 8.8 Magnesium 2.1 Total Bilirubin AST ALT Alkaline Phosphatase Total Protein Albumin Globulin Albumin/Globulin Ratio SARS-CoV-2 (PCR) Blood Type Antibody Screen Crossmatch [facility] Medical History Anemia Gastroesophageal reflux disease (03/22/11) Gout Migraine without aura (03/22/11) Postmenopausal HRT (hormone replacement therapy) Surgical History Status post delivery Family History Mother Blood disorder Suicide Father Heart attack Social History household members: spouse Smoking Status: Never smoker second hand exposure: No alcohol intake: former substance use type: does not use Discharge Plan Discharge Plan Patient Disposition: Home Provider Discharge Comment: You were admitted to the hospital with anemia. Your stools were guaiac positive. You had an upper endoscopy which was unremarkable but you felt improved after your transfusionT. he surgeon recommends an outpatient colonoscopy, and that you continue pantoprazole twice daily. You were also prescribed an iron supplement, if you cannot tolerate this you may need to have iron injections depending on your anemia. Please follow-up with your primary care provider in 1-2 weeks. Discharge orders & Medications Prescriptions: New pantoprazole 40 mg tablet,delayed release (DR/EC) 40 mg PO BID 30 Days Qty: 60 RF: 0 ferrous gluconate 240 mg (27 mg iron) tablet 240 mg PO DAILY 30 Days Qty: 30 RF: 0 Continued Vitamin D3 See Rx Instructions .ROUTE .COMPLEX RF: 0 Vitamin B Complex See Rx Instructions .ROUTE .COMPLEX RF: 0 Vitamin C See Rx Instructions .ROUTE .COMPLEX RF: 0 CO-Q-10 See Rx Instructions .ROUTE .COMPLEX RF: 0 zolmitriptan 5 mg tablet 5 mg PO Q2-4H PRN (Reason: migraine headache) Qty: 30 RF: 2 zolpidem 5 mg tablet 2.5 - 5 mg PO HS Qty: 30 RF: 2 acetaminophen [Tylenol] 325 mg Tablet 325 mg PO QID PRN (Reason: Gout) RF: 0 Discontinued famotidine 20 mg tablet 20 mg PO BID Qty: 180 RF: 2 omeprazole 20 mg capsule,delayed release(DR/EC) 20 mg PO DAILY Qty: 30 RF: 1 ibuprofen 200 mg Tablet 200 mg PO Q6H PRN (Reason: Gout) RF: 0 Follow up/Referrals: Arsh Giles, DO [Primary Care Provider] - Diet/Activity/Treatments Diet: Diet as Tolerated Activity: As tolerated Discharge Data Primary Care Provider: Arsh Giles
--- NOTE | 2021-01-06 18:07 | PC.NURSE ---
Patient discharged to home. Discharge instructions given and new prescriptions sent to [facility]. Tele is off, IV is removed. Patient has no concerns or questions about discharge and understands that she is to follow up with her PCP and Dr. Santiago for an outpatient colonoscopy.
== END 2021-01-06 18:20 | disposition home or self-care (01) | DRG 378 ==
LOC: ED 19:49 → AC 01-06 08:41
PROVIDERS: Emergency Medicine; Surgery; Admitting Provider Nurse Practitioner Family; Emergency Provider Emergency Medicine; PCP Family Medicine; Referring Provider Emergency Medicine; Visit Provider Nurse Practitioner Family
PROC: 0DJ08ZZ Inspection of Upper Intestinal Tract, Via Natural or Artificial Opening Endoscopic (ICD-10-PCS; CPT 43235; principal; 2021-01-06 14:30)
DX: K29.61 Other gastritis with bleeding (principal); D62 Acute posthemorrhagic anemia; K21.9 Gastro-esophageal reflux disease without esophagitis; M10.9 Gout, unspecified; R42 Dizziness and giddiness; G43.909 Migraine, unspecified, not intractable, without status migrainosus; Z20.822 Contact with and (suspected) exposure to COVID-19
CPT/HCPCS: 36415; 36430; 43239; 80048; 80053; 83735; 84550; 85014; 85018; 85025; 85610; 85730; 86850; 86900; 86901; 87635; 93005; 93010; 96374; 99232; 99282; 99285; C9803; P9016; C9113; J2704

== ENCOUNTER → 2021-01-14 09:30 | Outpatient (CLI) | payer OTHER, SELFPAY ==
[2021-01-07 10:58] VITALS: BMI 26.6
[2021-01-14 11:04] LABS: COVID19 -Nasal RAPID Negative (Negative)
== END ==
PROVIDERS: PCP Family Medicine; Visit Provider Surgery
DX: Z20.822 Contact with and (suspected) exposure to COVID-19 (principal)
CPT/HCPCS: 87635; C9803

== ENCOUNTER 2021-01-15 09:36 | Day surgery (SDC) | payer OTHER, SELFPAY ==
[2021-01-07 10:58] VITALS: BMI 26.6
[2021-01-15] MEDS: SODIUM CHLORIDE 0.9% 1,000 ML 200 ML IV (09:57)
[2021-01-15 10:01] VITALS: BP 117/78; PULSE 87; RESP 16; TEMP 36.8; O2SAT 98
[2021-01-15 10:09] VITALS: BMI 32.3
--- NOTE | 2021-01-15 10:25 | SUR.PREOP ---
[facility] 'lousy on admit, nauseated w/o emesis, c/o weakness. IV initiated, reported that she felt much better after receiving some fluids. Up to bathroom x2 (BM). Energy level and affect improved.
--- NOTE | 2021-01-15 11:04 | PM.PREOP ---
Pre-operative Note COVID-19 COVID-19 status: Negative Result date/Date tested (Pos, Neg/Pending): 01/14/21 Interval Note History & Physical reviewed/Exam performed by Physician: Yes Changes to H&P: No ASA Class (for procedural sedation): III
--- NOTE | 2021-01-15 11:32 | P.OP.ENDO_ITS ---
Operative Date/Time/Diagnoses Date of procedure: 01/15/21 Time of procedure: 11:32 Pre-op diagnosis: Anemia Post-op diagnosis: other (Diverticulosis, no polyps for sources of anemia seen) Procedure & Clinicians Study performed: Colonoscopy Procedural sedation performed by the endoscopist Same procedure as scheduled: Yes Indications: Anemia Surgeon: Susie Santiago Procedure Notes SCOAP/Timeout: Performed Procedure in detail: The patient was brought to the room and placed in left lateral decubitus position with all bony prominences padded. A time-out was performed and then the patient was given procedural sedation starting with 4 mg of Versed and 100 mcg of fentanyl. An additional 2 mg of Versed and 50 micro g of fentanyl were given during the procedure. Vitals were monitored throughout the procedure and remained stable. Once adequately sedated, the procedure was begun. A rectal exam was performed revealing no abnormalities. The colonoscope was then introduced to the rectum and advanced to the cecum in the usual fashion. The cecum was identified by the appendiceal orifice, the mucosal tri- fold, and the ileocecal valve. The scope was then retracted while rotating side to side and examining each mucosal fold. No polyps were seen. The patient has moderate diverticulosis in the descending and sigmoid colon At the conclusion of the procedure retroflexion was performed and small grade 1-2 internal h emorrhoids without stigmata of bleeding were seen. The scope was then withdrawn from the rectum the procedure was concluded. The patient tolerated the procedure well and was transferred to the PACU in stable condition. Scope withdrawal time: 7 Sedation minutes: 20 Findings: diverticulosis Specimen(s): none sent Complications: none Impression: No identified source of anemia Post-procedure Recommendations: Colonscopy in 10 years Follow up: as needed Disposition: PACU
[2021-01-15] MEDS: MIDAZOLAM 5 MG/5 ML VIAL IV (11:35)
[2021-01-15] MEDS: fentaNYL 250 MCG/5 ML INJ IV (11:36)
[2021-01-15 11:38] VITALS: BP 106/78; PULSE 98; RESP 17; TEMP 36.1; O2SAT 97
[2021-01-15 11:40] VITALS: BP 112/60; PULSE 93; RESP 17; O2SAT 99
[2021-01-15 11:45] VITALS: BP 100/61; PULSE 81; RESP 15; O2SAT 100
[2021-01-15 11:50] VITALS: BP 100/61; PULSE 92; RESP 17; TEMP 36.2; O2SAT 100
== END 2021-01-15 12:05 | disposition home or self-care (01) ==
PROVIDERS: PCP Family Medicine; Referring Provider Surgery; Visit Provider Surgery
PROC: 0DJD8ZZ Inspection of Lower Intestinal Tract, Via Natural or Artificial Opening Endoscopic (ICD-10-PCS; CPT 45378; principal; 2021-01-15 10:45)
DX: D64.9 Anemia, unspecified (principal); K57.30 Diverticulosis of large intestine without perforation or abscess without bleeding; K64.0 First degree hemorrhoids
CPT/HCPCS: 45378; 99152; J2250; J3010

== ENCOUNTER → 2021-01-19 16:51 | Outpatient (CLI) | payer OTHER, SELFPAY ==
[2021-01-07 10:58] VITALS: BMI 26.6
[2021-01-19 18:43] LABS: Reticulocyte Count, Percent 2.6 % (1.06-2.63)
[2021-01-19 18:44] LABS: Add Manual Diff / Slide Review NO; Basophils Absolute Auto 100 /uL (0-100); Basophils Percent Auto 1.2 % (0-2); Eosinophils Absolute Auto 100 /uL (0-450); Eosinophils Percent Auto 2.2 % (2-4); Hemoglobin 8.8 g/dL (12.0-16.0); Lymphocytes Absolute Auto 1800 /uL (1100-4500); Lymphocytes Percent Auto 26.2 % (25-40); Mean Corpuscular HGB Conc 30.5 % (30-36); Mean Corpuscular Hemoglobin 21.2 PG (26-34); Mean Corpuscular Volume 69.5 fL (80-100); Monocytes Absolute Auto 700 /uL (0-900); Neutrophils Absolute Auto 4100 /uL (1500-7000); Neutrophils Percent Auto 60.4 % (50-75); Platelet Count 425 X10^3/uL (150-400); Red Blood Cell Count 4.17 X10^6/uL (4.0-5.2); White Blood Cell Count 6.7 X10^3/uL (4.5-11.0)
[2021-01-19 19:01] LABS: HEMOLYSIS < 15 (0-50); Iron 30 ug/dL (37-170)
[2021-01-19 19:08] LABS: Hypochromasia 2+; Microcytosis 2+; Polychromasia 1+; RBC Morphology Abnormal
[2021-01-19 19:09] LABS: Dimorphic RBC PRESENT
[2021-01-19 19:11] LABS: Percent Iron Saturation 7 % (15-50); Total Iron Binding Capacity 420 ug/dL (265-497); Transferrin 308 mg/dL (206-381)
[2021-01-19 19:37] LABS: Ferritin 4 ng/mL (11-264)
[2021-01-19 19:51] LABS: Vitamin B12 865 pg/mL (239-931)
== END ==
PROVIDERS: PCP Family Medicine; Referring Provider Family Medicine; Visit Provider Family Medicine
DX: D64.9 Anemia, unspecified (principal)
CPT/HCPCS: 36415; 82607; 82728; 83540; 83550; 85025; 85045

== ENCOUNTER → 2021-01-23 11:11 | Outpatient (CLI) | payer OTHER, SELFPAY ==
[2021-01-07 10:58] VITALS: BMI 26.6
[2021-01-23 14:39] LABS: COVID19 -Nasal RAPID Negative (Negative)
== END ==
PROVIDERS: PCP Family Medicine; Visit Provider Nurse Practitioner
DX: Z20.822 Contact with and (suspected) exposure to COVID-19 (principal)
CPT/HCPCS: 87635

== ENCOUNTER → 2021-01-25 13:00 | Outpatient (CLI) | payer OTHER, SELFPAY ==
[2021-01-07 10:58] VITALS: BMI 26.6
== END ==
PROVIDERS: PCP Family Medicine; Referring Provider Registered Nurse; Visit Provider Registered Nurse
DX: R42 Dizziness and giddiness (principal); Z53.9 Procedure and treatment not carried out, unspecified reason

== ENCOUNTER → 2021-02-22 15:42 | Outpatient (CLI) | payer OTHER, SELFPAY ==
[2021-01-07 10:58] VITALS: BMI 26.6
[2021-02-22 16:41] LABS: Add Manual Diff / Slide Review NO; Basophils Absolute Auto 100 /uL (0-100); Basophils Percent Auto 1.2 % (0-2); Eosinophils Absolute Auto 200 /uL (0-450); Eosinophils Percent Auto 3.2 % (2-4); Hematocrit 34.1 % (36-46); Hemoglobin 10.5 g/dL (12.0-16.0); Lymphocytes Absolute Auto 1500 /uL (1100-4500); Lymphocytes Percent Auto 26.7 % (25-40); Mean Corpuscular HGB Conc 30.9 % (30-36); Mean Corpuscular Hemoglobin 23.9 PG (26-34); Mean Corpuscular Volume 77.3 fL (80-100); Monocytes Absolute Auto 600 /uL (0-900); Monocytes Percent Auto 10.6 % (3-14); Neutrophils Absolute Auto 3300 /uL (1500-7000); Neutrophils Percent Auto 58.3 % (50-75); Platelet Count 314 X10^3/uL (150-400); Red Blood Cell Count 4.41 X10^6/uL (4.0-5.2); Red Cell Distribution Width 25.9 % (11.6-14.8); White Blood Cell Count 5.6 X10^3/uL (4.5-11.0)
[2021-02-22 16:51] LABS: HEMOLYSIS < 15 (0-50); Iron 352 ug/dL (37-170)
[2021-02-22 17:02] LABS: Percent Iron Saturation 100 % (15-50); Total Iron Binding Capacity 352 ug/dL (265-497); Transferrin 298 mg/dL (206-381)
[2021-02-22 17:38] LABS: Hypochromasia 2+; Microcytosis 2+; Polychromasia 1+; RBC Morphology ABNORMAL
== END ==
PROVIDERS: PCP Family Medicine; Referring Provider Family Medicine; Visit Provider Family Medicine
DX: D64.9 Anemia, unspecified (principal)
CPT/HCPCS: 36415; 83540; 83550; 85025

== ENCOUNTER → 2021-03-13 11:14 | Outpatient (CLI) | payer OTHER, SELFPAY ==
[2021-01-07 10:58] VITALS: BMI 26.6
[2021-03-13 13:07] LABS: COVID19 -Nasal RAPID Negative (Negative)
== END ==
PROVIDERS: PCP Family Medicine; Visit Provider Physician Assistant
DX: Z20.822 Contact with and (suspected) exposure to COVID-19 (principal)
CPT/HCPCS: 87635

== ENCOUNTER → 2021-03-15 13:11 | Outpatient (CLI) | payer OTHER, SELFPAY ==
[2021-01-07 10:58] VITALS: BMI 26.6
--- NOTE | 2021-03-15 14:45 | PM.TREADMILL ---
Cardiac Stress Test Report Referral & Results Date Patient Seen: 03/15/21 Time Patient Seen: 14:45 Requesting provider: Cierra Best Indication: Dizziness and giddiness Rest ECG: Sinus rhythm Procedure Note: Standard Charles protocol; 6:11, 6.2 METS Fair exercise capacity, MANUELITO 0% Normal hemodynamic response to exercise No chest pain or anginal symptoms No significant ST changes at peak exercise Rare PVC, couplets Impression: Normal exercise stress test Please note: Actual ECG tracings can be found in the PACS system.
--- NOTE | 2021-03-15 19:19 | DI.NM.S_ITS ---
DATE OF SERVICE: 03/15/2021 PROCEDURE PERFORMED: Standard exercise treadmill stress test without imaging. ORDERING PROVIDER: MARYBETH Gutierrez. INDICATIONS: The patient is a 65-year-old female with exertional dyspnea and dizziness. FINDINGS: 1. The patient was able to exercise for 6 minutes 11 seconds on a standard Charles protocol suggesting average exercise capacity with an MANUELITO of 0%, achieving 6.2 METs. 2. She had a normal heart rate response to exercise, achieving a maximum heart rate of 154 BPM (100% of her predicted maximum). She had a borderline hypertensive blood pressure response with a resting blood pressure of 130/90, increasing to a maximum of 198/100. 3. She had no chest discomfort or anginal symptoms with stress. 4. Her resting ECG shows sinus rhythm with normal ST segments. There are no significant ST-segment shifts with exercise. There were rare isolated PVCs but no complex ectopy seen. IMPRESSION: 1. Normal exercise treadmill study with no ECG evidence for ischemia. 2. Average exercise capacity with a borderline hypertensive response, but no anginal discomfort. Tadeo Cyr - SEJAL/minoo/juan alberto doc#: [id number]/job#: [id number] dd: 03/15/2021 16:54:00 dt: 03/15/2021 18:17:00 DICTATING /COPIES TO: Guy Adrian MD; MARYBETH Gutierrez COPIES MNE: DILCIA;
== END ==
PROVIDERS: PCP Family Medicine; Referring Provider Registered Nurse; Visit Provider Registered Nurse
DX: R42 Dizziness and giddiness (principal); R06.09 Other forms of dyspnea
CPT/HCPCS: 93017

== ENCOUNTER → 2021-09-08 15:08 | Outpatient (CLI) | payer OTHER, SELFPAY ==
[2021-01-07 10:58] VITALS: BMI 26.6
[2021-09-08 15:38] LABS: Add Manual Diff / Slide Review NO; Basophils Absolute Auto 100 /uL (0-100); Eosinophils Absolute Auto 200 /uL (0-450); Eosinophils Percent Auto 3.2 % (2-4); Hematocrit 34.4 % (36-46); Hemoglobin 11.1 g/dL (12.0-16.0); Lymphocytes Absolute Auto 1600 /uL (1100-4500); Lymphocytes Percent Auto 30.4 % (25-40); Mean Corpuscular HGB Conc 32.1 % (30-36); Mean Corpuscular Hemoglobin 25.4 PG (26-34); Mean Corpuscular Volume 79.1 fL (80-100); Monocytes Absolute Auto 500 /uL (0-900); Monocytes Percent Auto 9.9 % (3-14); Neutrophils Absolute Auto 2900 /uL (1500-7000); Neutrophils Percent Auto 55.5 % (50-75); Platelet Count 313 X10^3/uL (150-400); Red Blood Cell Count 4.35 X10^6/uL (4.0-5.2); Red Cell Distribution Width 14.9 % (11.6-14.8); White Blood Cell Count 5.3 X10^3/uL (4.5-11.0)
[2021-09-08 16:12] LABS: HEMOLYSIS < 15 (0-50); Iron 23 ug/dL (37-170)
[2021-09-08 16:23] LABS: Percent Iron Saturation 6 % (15-50); Total Iron Binding Capacity 380 ug/dL (265-497); Transferrin 314 mg/dL (206-381)
[2021-09-08 17:42] LABS: Cholesterol 222 mg/dL (140-199); HDL Cholesterol 70 mg/dL (40-60); LDL Cholesterol Calculated 119 mg/dL (<100); Triglycerides 163 mg/dL (35-150)
[2021-09-08 18:18] LABS: Ferritin 3 ng/mL (11-264)
== END ==
PROVIDERS: PCP Family Medicine; Referring Provider Family Medicine; Visit Provider Family Medicine
DX: D50.8 Other iron deficiency anemias (principal); E78.00 Pure hypercholesterolemia, unspecified
CPT/HCPCS: 36415; 80061; 82728; 83540; 83550; 85025

== ENCOUNTER → 2022-05-02 13:12 | Outpatient (CLI) | payer OTHER, SELFPAY ==
[2021-01-07 10:58] VITALS: BMI 26.6
== END ==
PROVIDERS: PCP Family Medicine; Referring Provider Family Medicine; Visit Provider Family Medicine
DX: R19.7 Diarrhea, unspecified (principal); R19.8 Other specified symptoms and signs involving the digestive system and abdomen
CPT/HCPCS: 87045; 87899

== ENCOUNTER → 2022-12-06 15:36 | Outpatient (CLI) | payer OTHER, SELFPAY ==
[2021-01-07 10:58] VITALS: BMI 26.6
[2022-12-06 16:23] LABS: Add Manual Diff / Slide Review NO; Basophils Absolute Auto 100 /uL (0-100); Basophils Percent Auto 1.1 % (0-2); Eosinophils Absolute Auto 100 /uL (0-450); Eosinophils Percent Auto 1.9 % (2-4); Hematocrit 33.2 % (36-46); Hemoglobin 10.4 g/dL (12.0-16.0); Lymphocytes Absolute Auto 1700 /uL (1100-4500); Lymphocytes Percent Auto 29.1 % (25-40); Mean Corpuscular HGB Conc 31.3 % (30-36); Mean Corpuscular Hemoglobin 22.4 PG (26-34); Mean Corpuscular Volume 71.5 fL (80-100); Monocytes Absolute Auto 700 /uL (0-900); Monocytes Percent Auto 12.2 % (3-14); Neutrophils Absolute Auto 3300 /uL (1500-7000); Neutrophils Percent Auto 55.7 % (50-75); Platelet Count 358 X10^3/uL (150-400); Red Blood Cell Count 4.65 X10^6/uL (4.0-5.2); Red Cell Distribution Width 19.6 % (11.6-14.8); White Blood Cell Count 5.9 X10^3/uL (4.5-11.0)
[2022-12-06 16:56] LABS: Alanine Aminotransferase 17 IU/L (<35); Alkaline Phosphatase 69 U/L (38-126); Aspartate Aminotransferase 24 IU/L (14-36); BUN Creatinine Ratio 18.5 (6-22); Bilirubin Total 0.3 mg/dL (0.2-1.3); Blood Urea Nitrogen 17 mg/dL (7-17); Calcium 8.8 mg/dL (8.4-10.2); Carbon Dioxide 25 mmol/L (22-32); Chloride 105 mmol/L (98-107); Estimated Glomerular Filt Rate > 60 mL/min (>60); Glucose 90 mg/dL (80-110); HEMOLYSIS < 15 (0-50); Potassium 4.1 mmol/L (3.4-5.1); Sodium 140 mmol/L (137-145); Total Protein 7.3 g/dL (6.3-8.2)
[2022-12-06 17:03] LABS: HEMOLYSIS < 15 (0-50); Iron 32 ug/dL (37-170)
[2022-12-06 17:15] LABS: Percent Iron Saturation 8 % (15-50); Total Iron Binding Capacity 379 ug/dL (265-497); Transferrin 281 mg/dL (206-381)
[2022-12-06 17:44] LABS: Vitamin B12 917 pg/mL (239-931)
[2022-12-09 16:13] LABS: Albumin 4.3 g/dL (3.5-5.0); Albumin Globulin Ratio 1.4 (1.0-2.8)
== END ==
PROVIDERS: PCP Family Medicine; Referring Provider Family Medicine; Visit Provider Family Medicine
DX: D50.9 Iron deficiency anemia, unspecified (principal); G43.709 Chronic migraine without aura, not intractable, without status migrainosus; N62 Hypertrophy of breast
CPT/HCPCS: 36415; 80053; 82607; 83540; 83550; 85025

== ENCOUNTER → 2022-12-08 13:53 | Outpatient (CLI) | payer OTHER, SELFPAY ==
[2021-01-07 10:58] VITALS: BMI 26.6
[2022-12-08 15:35] LABS: Cholesterol 211 mg/dL (140-199); HDL Cholesterol 57 mg/dL (40-60); LDL Cholesterol Calculated 137 mg/dL (<100); Triglycerides 83 mg/dL (35-150)
== END ==
PROVIDERS: PCP Family Medicine; Referring Provider Family Medicine; Visit Provider Family Medicine
DX: D50.9 Iron deficiency anemia, unspecified (principal); G43.709 Chronic migraine without aura, not intractable, without status migrainosus; N62 Hypertrophy of breast
CPT/HCPCS: 36415; 80061

== ENCOUNTER → 2023-04-24 12:05 | Outpatient (CLI) | payer OTHER, SELFPAY ==
[2021-01-07 10:58] VITALS: BMI 26.6
[2023-04-24 12:50] LABS: Add Manual Diff / Slide Review NO; Basophils Absolute Auto 100 /uL (0-100); Basophils Percent Auto 0.6 % (0-2); Eosinophils Absolute Auto 200 /uL (0-450); Eosinophils Percent Auto 2.2 % (2-4); Hematocrit 40.5 % (36-46); Hemoglobin 13.6 g/dL (12.0-16.0); Lymphocytes Absolute Auto 1600 /uL (1100-4500); Lymphocytes Percent Auto 18.4 % (25-40); Mean Corpuscular HGB Conc 33.6 % (30-36); Mean Corpuscular Hemoglobin 27.9 PG (26-34); Monocytes Absolute Auto 700 /uL (0-900); Monocytes Percent Auto 8.4 % (3-14); Neutrophils Absolute Auto 6200 /uL (1500-7000); Neutrophils Percent Auto 70.4 % (50-75); Platelet Count 270 X10^3/uL (150-400); Red Blood Cell Count 4.88 X10^6/uL (4.0-5.2); White Blood Cell Count 8.8 X10^3/uL (4.5-11.0)
[2023-04-24 13:16] LABS: HEMOLYSIS < 15 (0-50); Iron 73 ug/dL (37-170)
[2023-04-24 13:27] LABS: Percent Iron Saturation 19 % (15-50); Total Iron Binding Capacity 383 ug/dL (265-497); Transferrin 278 mg/dL (206-381)
[2023-04-24 13:42] LABS: Cholesterol 212 mg/dL (140-199); HDL Cholesterol 70 mg/dL (40-60); LDL Cholesterol Calculated 127 mg/dL (<100); Triglycerides 75 mg/dL (35-150)
[2023-04-24 14:30] LABS: Vitamin B12 751 pg/mL (239-931)
== END ==
PROVIDERS: PCP Family Medicine; Referring Provider Family Medicine; Visit Provider Family Medicine
DX: D50.9 Iron deficiency anemia, unspecified (principal); E78.5 Hyperlipidemia, unspecified; K92.2 Gastrointestinal hemorrhage, unspecified
CPT/HCPCS: 36415; 80061; 82607; 83540; 83550; 85025

== ENCOUNTER → 2024-05-21 15:18 | Outpatient (CLI) | payer OTHER, SELFPAY ==
[2021-01-07 10:58] VITALS: BMI 26.6
--- NOTE | 2024-05-21 15:20 | DI.RAD.S_ITS ---
PROCEDURE: XR LUMBAR SPINE 2-3V INDICATIONS: eval back pain TECHNIQUE: 3 views of the lumbar spine were acquired. COMPARISON: None. FINDINGS: Bones: 5 [id number] vertebrae are present. There is trace anterolisthesis of L4 on L5. Multilevel degenerative disc space narrowing most severe at L5-S1. Foraminal narrowing is most prominent at L5-S1. Mild wedge deformity is present at T11 of indeterminate age.. No suspicious bony lesions. Soft tissues: Overlying bowel gas pattern is normal. No suspicious soft tissue calcifications. IMPRESSION: Degenerative changes most severe at L5-S1. T11 wedge deformity of indeterminate age. Dictated by: Maggie Soriano M.D. on 05/21/2024 at 16:30 Approved by: Maggie Soriano M.D. on 05/21/2024 at 16:31
== END ==
PROVIDERS: PCP Family Medicine; Referring Provider Family Medicine; Visit Provider Family Medicine
DX: M47.817 Spondylosis without myelopathy or radiculopathy, lumbosacral region (principal); M54.9 Dorsalgia, unspecified
CPT/HCPCS: 72100

== ENCOUNTER → 2025-09-08 08:38 | Outpatient (CLI) | payer OTHER, SELFPAY ==
[2021-01-07 10:58] VITALS: BMI 26.6
[2025-09-08 09:03] LABS: Add Manual Diff / Slide Review NO; Hematocrit 37.6 % (36-46); Hemoglobin 12.6 g/dL (12.0-16.0); Lymphocytes Absolute Auto 2300 /uL (1100-4500); Mean Corpuscular HGB Conc 33.5 % (30-36); Mean Corpuscular Hemoglobin 28.1 PG (26-34); Mean Corpuscular Volume 84.1 fL (80-100); Platelet Count 280 X10^3/uL (150-400)
[2025-09-08 09:23] LABS: HEMOLYSIS < 15 (0-50); Iron 50 ug/dL (37-170)
[2025-09-08 09:29] LABS: Alanine Aminotransferase 16 IU/L (<35); Albumin 4.2 g/dL (3.5-5.0); Albumin Globulin Ratio 1.6 (1.0-2.8); Alkaline Phosphatase 61 U/L (38-126); Blood Urea Nitrogen 22 mg/dL (7-17); Calcium 9.3 mg/dL (8.4-10.2); Carbon Dioxide 28 mmol/L (22-32); Chloride 102 mmol/L (98-107); Cholesterol 234 mg/dL (140-199); Estimated Glomerular Filt Rate > 60 mL/min (>60); Globulin 2.6 g/dL (1.7-4.1); Glucose 102 mg/dL (70-99); HDL Cholesterol 80 mg/dL (40-60); HEMOLYSIS < 15 (0-50); Potassium 4.6 mmol/L (3.4-5.1); Sodium 137 mmol/L (137-145); Total Protein 6.8 g/dL (6.3-8.2); Triglycerides 84 mg/dL (35-150)
[2025-09-08 09:39] LABS: Percent Iron Saturation 13 % (15-50); Total Iron Binding Capacity 381 ug/dL (265-497); Transferrin 334 mg/dL (206-381)
[2025-09-08 09:42] LABS: Vitamin D 25 Hydroxy (D3) 42.6 ng/mL (30.0-100.0)
[2025-09-08 09:55] LABS: TSH w/ Reflex to FT4 5.11 uIU/mL (0.47-4.68)
[2025-09-08 10:14] LABS: Vitamin B12 771 pg/mL (239-931)
[2025-09-08 12:14] LABS: Free T4, Direct Thyroxine 0.89 ng/dL (0.78-2.19)
== END ==
PROVIDERS: PCP Family Medicine; Referring Provider Family Medicine; Visit Provider Family Medicine
DX: E78.00 Pure hypercholesterolemia, unspecified (principal); M10.9 Gout, unspecified; K21.9 Gastro-esophageal reflux disease without esophagitis; G43.709 Chronic migraine without aura, not intractable, without status migrainosus; D64.9 Anemia, unspecified; G47.00 Insomnia, unspecified; E78.5 Hyperlipidemia, unspecified; D50.9 Iron deficiency anemia, unspecified
CPT/HCPCS: 36415; 80053; 80061; 82306; 82607; 83540; 83550; 84439; 84443; 85025